=== PATIENT | male | born 1945 | race Caucasian/White ===

== ENCOUNTER 2017-11-14 17:02 | Emergency (ER) | payer MEDICARE, OTHER ==
--- NOTE | 2017-11-14 17:44 | EDM.PDOC ---
ED HPI GENERAL MEDICAL PROBLEM - General Chief Complaint: Lower Extremity Injury/Pain Stated Complaint: Right knee pain; injury Time Seen by Provider: 11/14/17 17:17 Source of Information: Reports: Patient, Family, RN, RN Notes Reviewed History Limitations: Reports: No Limitations - History of Present Illness INITIAL COMMENTS - FREE TEXT/NARRATIVE: Patient presents to the ED at [facility] complaining of right knee pain. Patient states while walking on the sidewalk, he turned around, and somehow caused a twisting injury to the right knee. He has a previous knee replacement of the right knee. He states the entire knee hurts, but more around the medial aspect. He thinks "something must have torn inside." He states he bent the knee past a 90 degree angle. Onset: Today Right Knee Pain Score (Numeric/FACES): 4 - Related Data Allergies Allergy/AdvReac Type Severity Reaction Status Date / Time No Known Allergies Allergy Verified 11/14/17 17:26 Review of Systems - Review of Systems Review Of Systems: See Below Constitutional: Denies: Chills, Fever, Weakness Respiratory: Denies: Shortness of Breath, Cough Musculoskeletal: Reports: Joint Pain, Joint Swelling, Muscle Pain, Muscle Stiffness Skin: Reports: Wound (abrasion to lateral right knee) Neurological: Reports: No Symptoms. Denies: Numbness, Paresthesia, Tingling ED EXAM, GENERAL - Physical Exam Exam: See Below Exam Limited By: No Limitations General Appearance: Alert, No Apparent Distress Respiratory/Chest: No Respiratory Distress, Lungs Clear, Normal Breath Sounds Peripheral Pulses: 2+: Posterior Tibial (L), Posterior Tibial (R), Dorsalis Pedis (L), Dorsalis Pedis (R) Extremities: Joint Swelling, Limited Range of Motion Neurological: Alert, Oriented Skin Exam: Warm, Dry, Normal Color, Wound/Incision (abrasion to lateral right knee; right elbow and last two fingers right hand) Course - Vital Signs Last Recorded V/S: Last Vital Signs Temp 36.6 C 11/14/17 17:05 Pulse 85 11/14/17 17:05 Resp 18 11/14/17 17:05 BP 142/63 H 11/14/17 17:05 Pulse Ox 98 11/14/17 17:05 - Orders/Labs/Meds Orders: Active Orders 24 hr Category Date Time Status Knee 3V Rt [CR] Stat Exams 11/14/17 17:20 Taken - Radiology Interpretation Free Text/Narrative:: Knee, Right 3V: No new findings See scanned report in EMR for details Departure - Departure Time of Disposition: 18:02 Disposition: Home, Self-Care 01 Condition: Good Clinical Impression: Right knee injury Qualifiers: Encounter type: initial encounter Qualified Code(s): S89.91XA - Unspecified injury of right lower leg, initial encounter Knee abrasion Qualifiers: Encounter type: initial encounter Laterality: right Qualified Code(s): S80.211A - Abrasion, right knee, initial encounter Right knee sprain Qualifiers: Encounter type: initial encounter Involved ligament of knee: unspecified ligament Qualified Code(s): S83.91XA - Sprain of unspecified site of right knee , initial encounter - Discharge Information *PRESCRIPTION DRUG MONITORING PROGRAM REVIEWED*: Not Applicable *COPY OF PRESCRIPTION DRUG MONITORING REPORT IN PATIENT KEVIN: Not Applicable Instructions: Abrasion, Knee Sprain, Adult Referrals: PCP,None [Primary Care Provider] - Forms: ED Department Discharge Additional Instructions: 1. Stay well hydrated and rest 2. Use NADEGE wrap to help with any swelling 3. Use a walker if you are able too 4. May use Tylenol for pain 5. Rest, elevate and ice several times a day 6. See your Primary as symptoms warrant, you might need an MRI for further evaluation - Problem List Review Problem List Initiated/Reviewed/Updated: Yes - My Orders Last 24 Hours: My Active Orders 11/14/17 17:20 Knee 3V Rt [CR] Stat - Assessment/Plan Last 24 Hours: My Active Orders 11/14/17 17:20 Knee 3V Rt [CR] Stat Assessment:: Twisting injury, right knee Right knee abrasion Plan: Xrays discussed with patient. No new findings. Would recommend MRI for further evaluation. Will nadege wrap the knee for now. Will have patient use a walker until seen by PCP in clinic. May use Tylenol for pain. Rest, elevate, and ice to help with swelling.
== END 2017-11-14 18:20 | disposition home or self-care (01) ==
LOC: EDSEX 17:02 → VM.ED 17:02
DX: S83.91XA Sprain of unspecified site of right knee, initial encounter (principal); S50.311A Abrasion of right elbow, initial encounter; S60.414A Abrasion of right ring finger, initial encounter; S60.416A Abrasion of right little finger, initial encounter; X50.1XXA Overexertion from prolonged static or awkward postures, initial encounter
CPT/HCPCS: 73562-RT; 99283

== ENCOUNTER 2023-01-30 10:38 | Emergency (ER) | payer MEDICARE, OTHER | END 2023-01-30 12:17 | disposition home or self-care (01) | LOC: VM.ED 10:38 | DX: S83.91XA Sprain of unspecified site of right knee, initial encounter (principal); I10 Essential (primary) hypertension; J44.9 Chronic obstructive pulmonary disease, unspecified; E11.9 Type 2 diabetes mellitus without complications; Z96.651 Presence of right artificial knee joint; W19.XXXA Unspecified fall, initial encounter | CPT/HCPCS: 73562-RT; 99283 ==